=== PATIENT | male | born 1985 | race Caucasian/White ===

== ENCOUNTER → 2019-07-19 08:27 | Outpatient (BNVA) | payer SELFPAY | PROVIDERS: PCP Nurse Practitioner Family; Referring Provider Nurse Practitioner Family; Visit Provider Specialist | DX: G40.909 Epilepsy, unspecified, not intractable, without status epilepticus (principal); F17.210 Nicotine dependence, cigarettes, uncomplicated | CPT/HCPCS: 95816 ==

== ENCOUNTER 2019-08-18 03:58 | Emergency (ER) | payer SELFPAY ==
[2019-08-18 03:59] VITALS: BP 119/83; PULSE 86; RESP 20; TEMP 36.6; O2SAT 97; BMI 25.8
--- NOTE | 2019-08-18 04:01 | XR_ITS ---
WS: [id number] CHEST XRAY TECHNIQUE: Portable chest. CLINICAL INFORMATION: cp COMPARISON: None. FINDINGS: Heart: Normal cardiac silhouette. Lungs: Lungs are clear. No consolidation or pleural effusion. Bones: Normal visualized bony structures. XR/XR chest 1V portable [id number] IMPRESSION: Normal chest
--- NOTE | 2019-08-18 04:02 | ED_ITS ---
HPI - Chest Pain General: Chief Complaint: Chest Pain Stated Complaint: chest pain Time Seen by Provider: 08/18/19 04:01 Source: patient and EMS Mode of arrival: EMS Limitations: no limitations History of Present Illness: HPI narrative: 33-year-old male states he has had chest pain over the last 2 days is worsened tonight. He states pain is very sharp in nature denies any worsening or improving factors. He states pain is currently a 9 out of 10. He denies any vomiting or diarrhea. Pain is over right lower chest and right upper abdomen. Denies fevers. complaint: chest pain Onset (ago): day(s) Timing of current episode: constant Pain location: right chest Pain radiation: none Severity: severe Quality: sharp Relieving factors: nothing Exacerbating factors: nothing Associated symptoms: Deny abdominal pain, dyspnea, fever(s), nausea or vomiting Review of Systems Const: Denies: fever(s), chills, body aches or change in appetite Eyes: Denies: blurry vision or eye discomfort ENMT: Denies: throat pain or dental pain Card: Reports: chest pain Resp: Denies: dyspnea GI: Denies: abdominal pain, nausea, vomiting or diarrhea : Denies: dysuria Musc: Denies: neck pain or back pain Skin/Breast: Denies: rash Neuro: Denies: headache(s) Psych: Denies: depression Mark/Lymph: Denies: easy bruising All/Imm: Denies: urticaria PFS ED PFSH: Medical History Alcohol dependence, uncomplicated Cannabis dependence, uncomplicated Major depressive disorder, recurrent severe without psychotic features Nicotine dependence, cigarettes, uncomplicated Other stimulant dependence, uncomplicated Post-traumatic stress disorder, chronic Social History Smoking and tobacco status: current every day smoker cigarettes Physical Exam Const: COMMON NORMALS: no acute distress, patient oriented x3 and healthy appearing HENMT: COMMON NORMALS: normocephalic and atraumatic HEAD & SCALP: normocephalic and atraumatic Eye: COMMON NORMALS: Equal, round and reactive pupils present and EOMs intact bilaterally PUPIL: Yes Equal, round and reactive pupils present Neck/C-Spine: COMMON NORMALS: full ROM and supple Chest: COMMONS NORMALS: normal inspection of the chest OTHER: point tender over right lower chest Resp: COMMON NORMALS: normal respiratory effort, No retractions, No use of accessory muscles and clear to auscultation bilaterally AUSCULTATION: clear to auscultation bilaterally Cardio: COMMON NORMALS: regular rate, regular rhythm and No murmurs present (Cardio) RATE: regular rate RHYTHM: regular rhythm GI: COMMON NORMALS: Normal to inspection, nondistended, normoactive bowel sounds present, Soft to palpation, non-tender and no masses PALPATION: Yes Soft to palpation Extremity: COMMON NORMALS: normal to inspection and full ROM Neuro: COMMON NORMALS: patient oriented x3, moves all extremities and no focal motor deficits Psych: COMMON NORMALS: mental status grossly normal, Normal thought process present and cooperative THOUGHT PROCESS: Normal thought process present Skin: COMMON NORMALS: no rashes or lesions noted and no wounds GENERAL SKIN EXAM: no rashes or lesions noted Course Vital Signs: Vital signs: Vital Signs Temperature 97.8 F 08/18/19 03:59 Pulse Rate 86 08/18/19 03:59 Respiratory Rate 20 H 08/18/19 03:59 Blood Pressure 119/83 08/18/19 03:59 Pulse Oximetry 97 08/18/19 03:59 MDM - Chest Pain MDM Narrative: Medical decision making narrative: Patient presents here with chest pain is atypical in nature. Patient also slight abdominal pain with constipation. Patient's lab work here is normal signs and elevated white count. Patient has no signs of acute surgical abdomen. Patient has no signs of pulmonary embolism or cardiac cause. Patient is stable for discharge and is to follow-up with his primary care doctor in 3 to 5 days return if worsening. Lab Data: Labs: Lab Results 08/18/19 08/18/19 08/18/19 Range/Units 03:45 03:45 03:45 WBC 18.3 H (4.0-10.0) 10^3/ uL RBC 4.81 (4.1-5.3) 10^6/u L Hgb 14.7 (11.7-16.6) g/dL Hct 44.6 (42.0-52.0) % MCV 92.7 (80-94) fL MCH 30.6 (28.0-34.0) pg MCHC 33.0 (30.0-36.0) g/dL RDW 12.9 (12.1-15.1) % Plt Count 295 (130-400) 10^3/c mm MPV 9.8 (7.4-10.4) fL Neut % (Auto) 78.2 % Lymph % (Auto) 13.1 % [place] % (Auto) 7.1 % Eos % (Auto) 1.0 % Baso % (Auto) 0.3 % Neut # (Auto) 14.3 H (1.8-7.7) 10^3/u L Lymph # (Auto) 2.4 (0.8-4.8) 10^3/u L [place] # (Auto) 1.3 H (0.2-0.9) 10^3/u L Eos # (Auto) 0.2 (0.0-0.8) 10^3/u L Baso # (Auto) 0.1 (0.0-0.1) 10^3/u L Nucleated RBC % (a uto) 0 % Nucleated RBCs # 0.0 /100WBC Sodium 139 (136-145) mmol/L Potassium 4.7 (3.5-5.1) mmol/L Chloride 101 (98-107) mmol/L Carbon Dioxide 22 (22-29) mmol/L Anion Gap 20.7 H (5-19) BUN 22 H (6-20) mg/dL Creatinine 1.1 (0.7-1.2) mg/dL GFR Calculation 77.6 L (90-130) mL/min Glucose 95 (65-115) mg/dL Calculated Osmolal ity 284 L (285-295) mOsm/k g Calcium 9.4 (8.5-10.5) mg/dL Total Bilirubin 0.3 (0.15-1.2) mg/dL AST 38 (0-40) U/L ALT 65 H (0-41) U/L Alkaline Phosphata se 122 (40-130) IU/L Troponin T Baselin e 7 (0-15) ng/mL Total Protein 7.1 (6.6-8.7) g/dL Albumin 5.0 (3.5-5.2) g/dL Globulin 2.1 (1.3-4.6) g/dL Lipase 24 (13-60) U/L Imaging Data^: CT Abd/Pel: Attestation: I personally reviewed and interpreted this imaging study as chris guadarrama: Radiologist's impression: [address] [address] [address] Scan Report Signed Patient: Andre Pressley Unit #: [id number] : 1985 Age/Sex: 33 / M ADM Date: 08/18/19 Loc: ER Room/Bed: Attending Dr: Ordering Provider/Ordering MD: Quyen Saba MD Date of Service: 08/18/19 Procedure(s): CT abdomen pelvis w con* [id number] Accession Number(s): [id number] Report Number: [id number] PROCEDURE INFORMATION: Exam: CT Abdomen And Pelvis With Contrast Exam date and time: 08/18/2019 4:22 AM Age: 33 years old Clinical indication: Abdominal pain; Generalized; Additional info: Abd pain TECHNIQUE: Imaging protocol: Computed tomography of the abdomen and pelvis with intravenous contrast. Radiation optimization: All CT scans at this facility use at least one of these dose optimization techniques: automated exposure control; mA and/or kV adjustment per patient size (includes targeted exams where dose is matched to clinical indication); or iterative reconstruction. Contrast material: OMNI 300; Contrast volume: 95 ml; Contrast route: 20G; COMPARISON: No relevant prior studies available. RADIATION DOSE METRICS: Total DLP: 618.93 mGy-cm FINDINGS: Liver: Unremarkable liver. Gallbladder and bile ducts: Focal narrowing of the midportion of the gallbladder. No calcified gallstones or biliary ductal dilatation. Pancreas: Unremarkable. No ductal dilation. Spleen: No splenomegaly. Adrenals: No adrenal mass. Kidneys and ureters: Minimal right hydronephrosis. No left hydronephrosis. No apparent ureteral stone. Stomach and bowel: Moderate amount of feces in the rectum extending into the rectosigmoid region. Elongation of the sigmoid colon into the upper abdomen. No obstruction. Nondistended stomach. Appendix: Normal appendix. Intraperitoneal space: No free air. Vasculature: Approximately moderate to marked stenosis of the proximal celiac artery with mild poststenotic dilatation distal to this area; mild inferior looping of the proximal celiac artery with soft tissue extending transversely anterior to this area. No calcific plaque in the aorta or iliac arteries. No aortic aneurysm. Lymph nodes: No enlarged nodes. Bladder: Unremarkable as visualized. Reproductive: Unremarkable as visualized. Bones/joints: Old compression fractures. Degeneration of the L5-S1 disc. Soft tissues: Slight stranding and haziness in the subcutaneous fat in the lateral pelvic regions. CT/CT abdomen pelvis w con* [id number] IMPRESSION: 1. Suspicion of a rectal impaction. Elongation of the sigmoid colon into the upper abdomen indicating the possibility of colonic dysfunction. 2. 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 3. Focal narrowing of the midportion of the gallbladder raising the possibility of 1 of the hyperplastic cholecystoses. 4. Minimal right hydronephrosis, cause and age unclear. Other findings detailed above. EKG Data^: EKG 1: Attestation: I personally reviewed and interpreted this EKG as follows: EKG interpretation date: 08/18/19 EKG interpretation time: 04:11 Interpretation: nsr hr [address] or t wave abnormalities qrs 105 qtc 363 Discharge Plan Discharge Patient Disposition: Home, Self-Care Clinical Impression: Atypical chest pain, Constipation Abdominal pain Qualifiers: Abdominal location: generalized Qualified Code(s): R10.84 - Generalized abdominal pain Condition: Stable Prescriptions: New Miralax 17 gram/dose powder 17 gm PO DAILY PRN (Reason: constipation) Qty: 119 RF: 0 No Action sertraline [Zoloft] 100 mg tablet 100 mg PO DAILY Qty: 30 RF: 1 quetiapine [Seroquel] 100 mg tablet 100 mg PO .HS Qty: 30 RF: 1 Discharge Orders: Discharge Order (Routine); Ordered 08/18/19 Ordered By: Quyen Saba Discharge Diet: Advance as tolerated Discharge Activity: Resume usual activity Patient Instructions: Chest Pain (ED), Abdominal Pain (ED) Coding Level of Care Code ED District Leader for Chg Fwd Exam Comprehensive
[2019-08-18 04:12] LABS: Basophils # 0.1 10^3/uL (0.0-0.1); Basophils % 0.3 %; Eosinophils # 0.2 10^3/uL (0.0-0.8); Hematocrit 44.6 % (42.0-52.0); Hemoglobin 14.7 g/dL (11.7-16.6); Lymphocytes # 2.4 10^3/uL (0.8-4.8); Lymphocytes % 13.1 %; Mean Corpuscular Hemoglobin 30.6 pg (28.0-34.0); Mean Corpuscular Volume 92.7 fL (80-94); Mean Platelet Volume 9.8 fL (7.4-10.4); Monocytes # 1.3 10^3/uL (0.2-0.9); Monocytes % 7.1 %; Neutrophils # 14.3 10^3/uL (1.8-7.7); Neutrophils % 78.2 %; Nucleated Red Blood Cells % 0 %; Platelet Count 295 10^3/cmm (130-400); Red Blood Count 4.81 10^6/uL (4.1-5.3); Red Cell Distribution Width 12.9 % (12.1-15.1); White Blood Count 18.3 10^3/uL (4.0-10.0)
--- NOTE | 2019-08-18 04:21 | CTR_ITS ---
PROCEDURE INFORMATION: Exam: CT Abdomen And Pelvis With Contrast Exam date and time: 08/18/2019 4:22 AM Age: 33 years old Clinical indication: Abdominal pain; Generalized; Additional info: Abd pain TECHNIQUE: Imaging protocol: Computed tomography of the abdomen and pelvis with intravenous contrast. Radiation optimization: All CT scans at this facility use at least one of these dose optimization techniques: automated exposure control; mA and/or kV adjustment per patient size (includes targeted exams where dose is matched to clinical indication); or iterative reconstruction. Contrast material: OMNI 300; Contrast volume: 95 ml; Contrast route: 20G; COMPARISON: No relevant prior studies available. RADIATION DOSE METRICS: Total DLP: 618.93 mGy-cm FINDINGS: Liver: Unremarkable liver. Gallbladder and bile ducts: Focal narrowing of the midportion of the gallbladder. No calcified gallstones or biliary ductal dilatation. Pancreas: Unremarkable. No ductal dilation. Spleen: No splenomegaly. Adrenals: No adrenal mass. Kidneys and ureters: Minimal right hydronephrosis. No left hydronephrosis. No apparent ureteral stone. Stomach and bowel: Moderate amount of feces in the rectum extending into the rectosigmoid region. Elongation of the sigmoid colon into the upper abdomen. No obstruction. Nondistended stomach. Appendix: Normal appendix. Intraperitoneal space: No free air. Vasculature: Approximately moderate to marked stenosis of the proximal celiac artery with mild poststenotic dilatation distal to this area; mild inferior looping of the proximal celiac artery with soft tissue extending transversely anterior to this area. No calcific plaque in the aorta or iliac arteries. No aortic aneurysm. Lymph nodes: No enlarged nodes. Bladder: Unremarkable as visualized. Reproductive: Unremarkable as visualized. Bones/joints: Old compression fractures. Degeneration of the L5-S1 disc. Soft tissues: Slight stranding and haziness in the subcutaneous fat in the lateral pelvic regions. CT/CT abdomen pelvis w con* [id number] IMPRESSION: 1. Suspicion of a rectal impaction. Elongation of the sigmoid colon into the upper abdomen indicating the possibility of colonic dysfunction. 2. 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 3. Focal narrowing of the midportion of the gallbladder raising the possibility of 1 of the hyperplastic cholecystoses. 4. Minimal right hydronephrosis, cause and age unclear. Other findings detailed above. Radiation Dose CTDIVOL = (mGy): DLP = 618.93 (mGy-cm)
[2019-08-18 04:31] LABS: Troponin(5th) Baseline 7 ng/mL (0-15)
[2019-08-18] MEDS: ondansetron 2 mg/ML SDV 2 mL 4 MG IVP (04:32)
[2019-08-18] MEDS: ketorolac 30 mg/mL INJ IVP (04:32)
[2019-08-18 04:45] LABS: Alanine Aminotransferase 65 U/L (0-41); Alkaline Phosphatase 122 IU/L (40-130); Anion Gap 20.7 (5-19); Aspartate Amino Transferase 38 U/L (0-40); Blood Urea Nitrogen 22 mg/dL (6-20); Calcium 9.4 mg/dL (8.5-10.5); Carbon Dioxide 22 mmol/L (22-29); Chloride 101 mmol/L (98-107); Globulin 2.1 g/dL (1.3-4.6); Glomerular Filtration Rate 77.6 mL/min (90-130); Glucose 95 mg/dL (65-115); Lipase 24 U/L (13-60); Osmolality Calculated 284 mOsm/kg (285-295); Potassium 4.7 mmol/L (3.5-5.1); Sodium 139 mmol/L (136-145); Total Bilirubin 0.3 mg/dL (0.15-1.2); Total Protein 7.1 g/dL (6.6-8.7)
[2019-08-18] MEDS: iohexol 300 mg/mL 100 mL Btl IV (05:06)
[2019-08-18 05:41] VITALS: BP 106/69; PULSE 96; RESP 20; O2SAT 96
== END 2019-08-18 05:43 | disposition home or self-care (01) ==
PROVIDERS: Emergency Provider Emergency Medicine
DX: R07.89 Other chest pain (principal); K59.00 Constipation, unspecified; F17.210 Nicotine dependence, cigarettes, uncomplicated
CPT/HCPCS: 12345; 71045; 74177; 80053; 83690; 84484; 85025; 96374; 96375; 99282; 99284; J1885; J2405; Q9967

== ENCOUNTER 2019-08-26 20:15 | Emergency (ER) | payer SELFPAY ==
[2019-08-26 20:17] VITALS: BP 121/78; PULSE 95; RESP 16; TEMP 36.7; O2SAT 97; BMI 26.6
--- NOTE | 2019-08-26 20:19 | XRR_ITS ---
PROCEDURE INFORMATION: Exam: XR Chest, 1 View Exam date and time: 08/26/2019 8:41 PM Age: 33 years old Clinical indication: Injury or trauma; Fall; Initial encounter; Abrasion; Injury details: Right rib pain TECHNIQUE: Imaging protocol: XR of the chest Views: 1 view. COMPARISON: CR XR chest 1V portable [id number] 08/18/2019 4:48 AM FINDINGS: Lungs: Unremarkable. No consolidation. Pleural space: Unremarkable. No pleural effusion. No pneumothorax. Heart/Mediastinum: Unremarkable. No cardiomegaly. Bones/joints: Unremarkable. XR/XR chest 1V portable [id number] IMPRESSION: No acute findings.
--- NOTE | 2019-08-26 20:22 | ED_ITS ---
HPI - General Adult General: Chief complaint: Seizure Stated complaint: RIB PAIN Time Seen by Provider: 08/26/19 20:19 History of Present Illness: HPI narrative: Andre is a nice 33-year-old male who comes in complaining of right lower anterior rib pain and right upper quadrant pain after falling. The patient had a seizure which caused him to fall to the ground re-aggravating injuries that he had previously suffered. Patient states he was recently in [facility] for these injuries. He states he had 3 broken ribs. His seizures are new and he is not taking any seizure medication at this time. He is scheduled to follow-up with Dr. Mcneal to work this up further. Patient is denying any injuries other than increased pain to his right lower chest and upper abdominal area. Associated symptoms: Reports chest pain; Deny confusion, diaphoresis, dyspnea, headache(s), malaise, nausea, rash, palpitations, syncope or vomiting Review of Systems Const: Denies: fever(s), chills, body aches, fatigue, malaise or diaphoresis Eyes: Denies: change in vision, blurry vision, blind spots or photophobia ENMT: Denies: throat pain, odynophagia, hoarseness, swelling of lips/tongue, ear or mastoid pain, ear discharge, change in hearing or nasal discharge Card: Reports: chest pain; Denies: palpitations, irregular heart rhythm, edema, lightheadedness, syncope, pre-syncope, dyspnea on exertion or orthopnea Resp: Denies: dyspnea, productive cough, non-productive cough, wheezing, hemoptysis or chest congestion GI: Reports: abdominal pain; Denies: nausea, vomiting, hematemesis, coffee ground emesis, heartburn, diarrhea, constipation, GI cramping, hematochezia or melena : Denies: flank pain, dysuria, urinary frequency, urinary urgency or hematuria Musc: Denies: neck pain, back pain, extremity pain, extremity swelling, joint pain, joint swelling, joint redness, joint warmth or joint stiffness Skin/Breast: Denies: rash, pruritus, erythema, skin tenderness or jaundice Neuro: Denies: headache(s), numbness in extremities, weakness in extremities, sensory changes, lack of coordination, difficulty walking, dizziness, vertigo, confusion or Slurred speech present Mark/Lymph: Denies: easy bruising, easy bleeding, petechiae, purpura or enlarged lymph nodes All/Imm: Denies: urticaria, throat swelling, tongue swelling, facial swelling or acute wheezing PFSH ED PFSH: Medical History Alcohol dependence, uncomplicated Cannabis dependence, uncomplicated Major depressive disorder, recurrent severe without psychotic features Nicotine dependence, cigarettes, uncomplicated Other stimulant dependence, uncomplicated Post-traumatic stress disorder, chronic Social History Smoking and tobacco status: current every day smoker cigarettes Physical Exam Const: COMMON NORMALS: no acute distress, patient oriented x3, no limitations, healthy appearing and well nourished GENERAL APPEARANCE: cooperative, well kempt and well developed HENMT: COMMON NORMALS: normocephalic, atraumatic, hearing grossly normal bilaterally, external ears normal, EAC's normal, Normal external nose present and moist oral mucous membranes HEAD & SCALP: normocephalic and atraumatic NOSE: Normal external nose present and Normal nares present EXTERNAL EAR: Yes external ears normal EXTERNAL AUDITORY CANAL: EAC's normal MOUTH: Normal oral and palatal mucosa present, lip normal and tongue normal Eye: COMMON NORMALS: Equal, round and reactive pupils present, EOMs intact bilaterally, conjunctivae normal and no scleral icterus GENERAL EYE: appearance normal, both eyes and all related structures ALIGNMENT: Yes alignment normal PERIORBITAL: periorbital findings normal EYELID: eyelids normal CONJUNCTIVA: Yes conjunctivae normal SCLERA: sclerae normal PU PIL: Yes Equal, round and reactive pupils present Neck/C-Spine: COMMON NORMALS: full ROM, no lymphadenopathy, supple, no meningeal signs and no JVD GENERAL: Yes normal visual inspection and Yes trachea midline Chest: CHEST: No crepitus and Yes localized rib tenderness with anteroposterior compression (Anterior right lower ribs) Resp: COMMON NORMALS: normal respiratory effort, No retractions, No use of accessory muscles and clear to auscultation bilaterally EFFORT & INSPECTION: Yes able to speak in complete sentences and Yes symmetric chest movement AUSCULTATION: clear to auscultation bilaterally, no crackles, no rales, no rhonchi and no wheezes Cardio: COMMON NORMALS: no JVD, regular rate, regular rhythm, S1 normal heart sound present, S2 normal heart sound present, No gallops present (Cardio), No clicks present (Cardio), No murmurs present (Cardio) and No rub (Cardio) RATE: regular rate RHYTHM: regular rhythm HEART SOUNDS: S1 normal heart sound present and S2 normal heart sound present GI: COMMON NORMALS: Soft to palpation and No hepatosplenomegaly present PALPATION: Yes Soft to palpation, Yes Tenderness to palpation present (GI) (Right upper quadrant), No Guarding due to palpation present (GI), No Rigid due to palpation, Yes No hepatosplenomegaly present, No Hernia present, No Palpable mass present and No Pulsatile mass present : COMMON NORMALS: Yes no CVA tenderness BLADDER/KIDNEY EXAM: Yes no CVA tenderness Back/Pelvis: COMMON NORMALS: no CVA tenderness, thoracic and lumbar spine normal to inspection, no thoracic nor lumbar tenderness and thoraco-lumbar ROM normal Extremity: COMMON NORMALS: normal to inspection, full ROM, capillary refill normal, no joint enlargement, no clubbing, cyanosis or edema and no calf tenderness Neuro: COMMON NORMALS: patient oriented x3, CN's II-XII intact bilaterally, moves all extremities, no focal motor deficits and no sensory deficits noted MENINGEAL SIGNS: Yes no meningeal signs SPEECH: speech normal Psych: COMMON NORMALS: mental status grossly normal, Normal thought process present, cooperative, normal affect, speech normal and activity/motor behavior normal APPEARANCE: Yes well kempt SPEECH: Yes normal speech THOUGHT PROCESS: Normal thought process present Skin: COMMON NORMALS: no rashes or lesions noted, turgor normal, no jaundice, no petechiae and no mottling GENERAL SKIN EXAM: no rashes or lesions noted and turgor normal Course Vital Signs: Vital signs: Vital Signs Temperature 98.0 F 08/26/19 20:17 Pulse Rate 87 08/26/19 22:46 Respiratory Rate 18 08/26/19 22:46 Blood Pressure 110/78 08/26/19 22:46 Pulse Oximetry 98 08/26/19 22:46 MDM - General Adult MDM Narrative: Medical decision making narrative: Peter is a nice 33-year-old male who comes in with a breakthrough seizure and has caused a reinjury to his right ribs. Clinically does have a rib fracture but CT scan shows no evidence of any internal injuries or pneumothorax. Patient is scheduled to go see Dr. Mnceal but has not done so yet. I had a CT of the head performed tonight because of this new diagnosis but there is no acute abnormality. Per my experience of working with Dr. Mcneal I started him on Keppra 500 mg p.o. twice daily. We have done this together multiple times in the past. Patient showed no other sign of problem. I did review seizure precautions with him at length and he agrees to follow-up with Dr. Mcneal or return here if necessary. Lab Data: Attestation: I reviewed the patient's lab results. Labs: Lab Results 08/26/19 08/26/19 Range/Units 20:25 20:25 WBC 10.0 (4.0-10.0) 10^3/ uL RBC 4.52 (4.1-5.3) 10^6/u L Hgb 13.9 (11.7-16.6) g/dL Hct 42.8 (42.0-52.0) % MCV 94.7 H (80-94) fL MCH 30.8 (28.0-34.0) pg MCHC 32.5 (30.0-36.0) g/dL RDW 12.7 (12.1-15.1) % Plt Count 273 (130-400) 10^3/c mm MPV 9.2 (7.4-10.4) fL Neut % (Auto) 54.3 % Lymph % (Auto) 34.1 % [place] % (Auto) 9.2 % Eos % (Auto) 1.8 % Baso % (Auto) 0.3 % Neut # (Auto) 5.4 (1.8-7.7) 10^3/u L Lymph # (Auto) 3.4 (0.8-4.8) 10^3/u L [place] # (Auto) 0.9 (0.2-0.9) 10^3/u L Eos # (Auto) 0.2 (0.0-0.8) 10^3/u L Baso # (Auto) 0.0 (0.0-0.1) 10^3/u L Nucleated RBC % (a uto) 0 % Nucleated RBCs # 0.0 /100WBC Sodium 139 (136-145) mmol/L Potassium 4.2 (3.5-5.1) mmol/L Chloride 101 (98-107) mmol/L Carbon Dioxide 26 (22-29) mmol/L Anion Gap 16.2 (5-19) BUN 20 (6-20) mg/dL Creatinine 1.1 (0.7-1.2) mg/dL GFR Calculation 77.6 L (90-130) mL/min Glucose 96 (65-115) mg/dL Calculated Osmolal ity 284 L (285-295) mOsm/k g Calcium 10.4 (8.5-10.5) mg/dL Magnesium 2.0 (1.7-2.3) mg/dL Total Bilirubin 0.2 (0.15-1.2) mg/dL AST 83 H (0-40) U/L ALT 143 H (0-41) U/L Alkaline Phosphata se 96 (40-130) IU/L Total Protein 7.4 (6.6-8.7) g/dL Albumin 4.5 (3.5-5.2) g/dL Globulin 2.9 (1.3-4.6) g/dL Imaging Data^: CT Head: Radiologist's impression: [place] [address] CT Scan Report Signed Patient: Andre Pressley Unit #: [id number] : 1985 Age/Sex: 33 / M ADM Date: Loc: ER Room/Bed: Attending Dr: Ordering Provider/Ordering MD: Audra Segal DO Date of Service: 08/26/19 Procedure(s): CT head wo con* [id number] Accession Number(s): [id number] Report Number: [id number] PROCEDURE INFORMATION: Exam: CT Head Without Contrast Exam date and time: 08/26/2019 9:04 PM Age: 33 years old Clinical indication: Syncope and collapse; Patient HX: ? New onset seizures TECHNIQUE: Imaging protocol: Computed tomography of the head without contrast. Radiation optimization: All CT scans at this facility use at least one of these dose optimization techniques: automated exposure control; mA and/or kV adjustment per patient size (includes targeted exams where dose is matched to clinical indication); or iterative reconstruction. COMPARISON: CT head wo con* [id number] 07/11/2017 10:52 AM RADIATION DOSE METRICS: Total DLP: 771.08 mGy-cm FINDINGS: Brain: Normal. No hemorrhage. Unremarkable white matter. No mass effect. Ventricles: Normal. No ventriculomegaly. Bones/joints: Unremarkable. No acute fracture. Sinuses: Visualized sinuses are unremarkable. No fluid levels. Mastoid air cells: Visualized mastoid air cells are well aerated. Soft tissues: Unremarkable. CT/CT head wo con* [id number] IMPRESSION: No acute intracranial abnormality. Radiation Dose CTDIVOL = (mGy): DLP = 771.08 (mGy-cm) Dictated By: Aristeo Wood Signed By: Aristeo Wood Signed Date/Time: 08/26/192143 DD/ 42 CT Chest/Abdomen/Pelvis: Radiologist's impression: [place] [address] CT Scan Report Signed Patient: Andre Pressley Unit #: [id number] : 1985 Age/Sex: 33 / M ADM Date: 08/26/19 Loc: ER Room/Bed: Attending Dr: Ordering Provider/Ordering MD: Audra Segal DO Date of Service: 08/26/19 Procedure(s): CT chest abd pel w con* Accession Number(s): [id number] Report Number: [id number] PROCEDURE INFORMATION: Exam: CT Chest With Contrast Exam date and time: 08/26/2019 9:04 PM Age: 33 years old Clinical indication: Abdominal pain; Localized; Right upper quadrant (ruq); Chest wall pain; Patient HX: C/O R sided chest/abd pain after possible seizure; Additional info: Trauma TECHNIQUE: Imaging protocol: Computed tomography of the chest with intravenous contrast. Radiation optimization: All CT scans at this facility use at least one of these dose optimization techniques: automated exposure control; mA and/or kV adjustment per patient size (includes targeted exams where dose is matched to clinical indication); or iterative reconstruction. Contrast material: OMNI 300; Contrast volume: 95 ml; Contrast route: 20G; COMPARISON: CT abdomen pelvis w con* [id number] 08/18/2019 4:55 AM RADIATION DOSE METRICS: Total DLP: 1336.75 mGy-cm FINDINGS: Lungs: Minimal dependent atelectasis lung bases. Pleural space: Unremarkable. No pneumothorax. No pleural effusion. Heart: Unremarkable. No cardiomegaly. No pericardial effusion. Aorta: Unremarkable. No aortic aneurysm. Lymph nodes: Unremarkable. No enlarged lymph nodes. Bones/joints: Unremarkable. No acute fracture. Soft tissues: Unremarkable. IMPRESSION: No visible active or acute cardiopulmonary/cardiothoracic pathologic process. PROCEDURE INFORMATION: Exam: CT Abdomen And Pelvis With Contrast Exam date and time: 08/26/2019 9:04 PM Age: 33 years old Clinical indication: Abdominal pain; Localized; Right upper quadrant (ruq); Chest wall pain; Patient HX: C/O R sided chest/abd pain after possible seizure; Additional info: Trauma TECHNIQUE: Imaging protocol: Computed tomography of the abdomen and pelvis with intravenous contrast. Radiation optimization: All CT scans at this facility use at least one of these dose optimization techniques: automated exposure control; mA and/or kV adjustment per patient size (includes targeted exams where dose is matched to clinical indication); or iterative reconstruction. Contrast material: OMNI 300; Contrast volume: 95 ml; Contrast route: 20G; COMPARISON: CT abdomen pelvis w con* [id number] 08/18/2019 4:55 AM RADIATION DOSE METRICS: Total DLP: 1336.75 mGy-cm FINDINGS: Liver: Unremarkable. No mass. Gallbladder and bile ducts: Normal. No calcified stones. No ductal dilation. Pancreas: Normal. No ductal dilation. Spleen: Normal. No splenomegaly. Adrenals: Normal. No mass. Kidneys and ureters: Normal. No hydronephrosis. Stomach and bowel: Unremarkable. No obstruction. No mucosal thickening. Appendix: No evidence of appendicitis. Intraperitoneal space: Unremarkable. No free air. No significant fluid collection. Vasculature: Unremarkable. No abdominal aortic aneurysm. Lymph nodes: Unremarkable. No enlarged lymph nodes. Bladder: Unremarkable as visualized. Reproductive: Unremarkable as visualized. Bones/joints: Unremarkable. No acute fracture. Soft tissues: Unremarkable. CT/CT chest abd pel w con* IMPRESSION: No acute findings. Radiation Dose CTDIVOL = (mGy): DLP = 1336.75 1336.75 (mGy-cm) Dictated By: Aristeo Wood Signed By: Aristeo Wood Signed Date/Time: 08/26/192150 DD/ 49 Discharge Plan Discharge Patient Disposition: Home, Self-Care Clinical Impression: Rib injury, Seizure disorder, Liver enzyme elevation Condition: Stable Prescriptions: New Keppra 500 mg tablet 500 mg PO BID 14 Days Qty: 28 RF: 0 [place] 5-325 mg tablet 1 tab PO Q6H PRN (Reason: pain) 5 Days Qty: 10 RF: 0 No Action sertraline [Zoloft] 100 mg tablet 100 mg PO DAILY Qty: 30 RF: 1 quetiapine [Seroquel] 100 mg tablet 100 mg PO .HS Qty: 30 RF: 1 Miralax 17 gram/dose powder 17 gm PO DAILY PRN (Reason: constipation) Qty: 119 RF: 0 Discharge Orders: Discharge Order (Routine); Ordered 08/26/19 Ordered By: Audra Segal Referrals: Mariposa Mcneal MD [Physician] - (Follow-up as scheduled with Dr. Mcneal.) Alf Jon MD [Physician] - 7-10 days Discharge Diet: Advance as tolerated Discharge Activity: Increase activity as tolerated Patient Instructions: Recurrent Seizures Adult (ED), Fractures - Rib Activity Restrictions/Additional Instructions: Please return to the ER immediately for any of the signs or symptoms listed on your discharge instruction sheets, worsening/changing of your symptoms, you are not getting better as quickly as expected, or for ANY other cause or concerns. No driving, no working at heights, no tub baths, no swimming alone or anything else that would put you at risk should you have another seizure. Be certain to follow-up with your doctor or Dr. Jon for a reevaluation of your elevated liver enzymes. 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
[2019-08-26 20:32] LABS: Basophils % 0.3 %; Eosinophils # 0.2 10^3/uL (0.0-0.8); Eosinophils % 1.8 %; Hematocrit 42.8 % (42.0-52.0); Hemoglobin 13.9 g/dL (11.7-16.6); Lymphocytes # 3.4 10^3/uL (0.8-4.8); Lymphocytes % 34.1 %; Mean Corpuscular HGB Conc 32.5 g/dL (30.0-36.0); Mean Corpuscular Hemoglobin 30.8 pg (28.0-34.0); Mean Corpuscular Volume 94.7 fL (80-94); Mean Platelet Volume 9.2 fL (7.4-10.4); Monocytes # 0.9 10^3/uL (0.2-0.9); Monocytes % 9.2 %; Neutrophils # 5.4 10^3/uL (1.8-7.7); Neutrophils % 54.3 %; Nucleated Red Blood Cells % 0 %; Platelet Count 273 10^3/cmm (130-400); Red Blood Count 4.52 10^6/uL (4.1-5.3); Red Cell Distribution Width 12.7 % (12.1-15.1)
[2019-08-26] MEDS: ondansetron 2 mg/ML SDV 2 mL 4 MG IVP (20:41)
[2019-08-26] MEDS: lactated ringers 1,000 ML 150 ML IV (20:41)
[2019-08-26 20:42] VITALS: RESP 16
[2019-08-26] MEDS: morphine 4 mg/mL SDV 1 mL IVP (20:42)
[2019-08-26 20:44] VITALS: BP 105/59; PULSE 93; RESP 20; O2SAT 96
[2019-08-26 20:52] LABS: Alanine Aminotransferase 143 U/L (0-41); Albumin Level 4.5 g/dL (3.5-5.2); Alkaline Phosphatase 96 IU/L (40-130); Anion Gap 16.2 (5-19); Aspartate Amino Transferase 83 U/L (0-40); Blood Urea Nitrogen 20 mg/dL (6-20); Calcium 10.4 mg/dL (8.5-10.5); Carbon Dioxide 26 mmol/L (22-29); Chloride 101 mmol/L (98-107); Globulin 2.9 g/dL (1.3-4.6); Glomerular Filtration Rate 77.6 mL/min (90-130); Glucose 96 mg/dL (65-115); Osmolality Calculated 284 mOsm/kg (285-295); Potassium 4.2 mmol/L (3.5-5.1); Sodium 139 mmol/L (136-145); Total Bilirubin 0.2 mg/dL (0.15-1.2); Total Protein 7.4 g/dL (6.6-8.7)
--- NOTE | 2019-08-26 21:01 | CTR_ITS ---
PROCEDURE INFORMATION: Exam: CT Head Without Contrast Exam date and time: 08/26/2019 9:04 PM Age: 33 years old Clinical indication: Syncope and collapse; Patient HX: ? New onset seizures TECHNIQUE: Imaging protocol: Computed tomography of the head without contrast. Radiation optimization: All CT scans at this facility use at least one of these dose optimization techniques: automated exposure control; mA and/or kV adjustment per patient size (includes targeted exams where dose is matched to clinical indication); or iterative reconstruction. COMPARISON: CT head wo con* [id number] 07/11/2017 10:52 AM RADIATION DOSE METRICS: Total DLP: 771.08 mGy-cm FINDINGS: Brain: Normal. No hemorrhage. Unremarkable white matter. No mass effect. Ventricles: Normal. No ventriculomegaly. Bones/joints: Unremarkable. No acute fracture. Sinuses: Visualized sinuses are unremarkable. No fluid levels. Mastoid air cells: Visualized mastoid air cells are well aerated. Soft tissues: Unremarkable. CT/CT head wo con* [id number] IMPRESSION: No acute intracranial abnormality. Radiation Dose CTDIVOL = (mGy): DLP = 771.08 (mGy-cm)
--- NOTE | 2019-08-26 21:01 | CTR_ITS ---
PROCEDURE INFORMATION: Exam: CT Chest With Contrast Exam date and time: 08/26/2019 9:04 PM Age: 33 years old Clinical indication: Abdominal pain; Localized; Right upper quadrant (ruq); Chest wall pain; Patient HX: C/O R sided chest/abd pain after possible seizure; Additional info: Trauma TECHNIQUE: Imaging protocol: Computed tomography of the chest with intravenous contrast. Radiation optimization: All CT scans at this facility use at least one of these dose optimization techniques: automated exposure control; mA and/or kV adjustment per patient size (includes targeted exams where dose is matched to clinical indication); or iterative reconstruction. Contrast material: OMNI 300; Contrast volume: 95 ml; Contrast route: 20G; COMPARISON: CT abdomen pelvis w con* [id number] 08/18/2019 4:55 AM RADIATION DOSE METRICS: Total DLP: 1336.75 mGy-cm FINDINGS: Lungs: Minimal dependent atelectasis lung bases. Pleural space: Unremarkable. No pneumothorax. No pleural effusion. Heart: Unremarkable. No cardiomegaly. No pericardial effusion. Aorta: Unremarkable. No aortic aneurysm. Lymph nodes: Unremarkable. No enlarged lymph nodes. Bones/joints: Unremarkable. No acute fracture. Soft tissues: Unremarkable. IMPRESSION: No visible active or acute cardiopulmonary/cardiothoracic pathologic process. PROCEDURE INFORMATION: Exam: CT Abdomen And Pelvis With Contrast Exam date and time: 08/26/2019 9:04 PM Age: 33 years old Clinical indication: Abdominal pain; Localized; Right upper quadrant (ruq); Chest wall pain; Patient HX: C/O R sided chest/abd pain after possible seizure; Additional info: Trauma TECHNIQUE: Imaging protocol: Computed tomography of the abdomen and pelvis with intravenous contrast. Radiation optimization: All CT scans at this facility use at least one of these dose optimization techniques: automated exposure control; mA and/or kV adjustment per patient size (includes targeted exams where dose is matched to clinical indication); or iterative reconstruction. Contrast material: OMNI 300; Contrast volume: 95 ml; Contrast route: 20G; COMPARISON: CT abdomen pelvis w con* [id number] 08/18/2019 4:55 AM RADIATION DOSE METRICS: Total DLP: 1336.75 mGy-cm FINDINGS: Liver: Unremarkable. No mass. Gallbladder and bile ducts: Normal. No calcified stones. No ductal dilation. Pancreas: Normal. No ductal dilation. Spleen: Normal. No splenomegaly. Adrenals: Normal. No mass. Kidneys and ureters: Normal. No hydronephrosis. Stomach and bowel: Unremarkable. No obstruction. No mucosal thickening. Appendix: No evidence of appendicitis. Intraperitoneal space: Unremarkable. No free air. No significant fluid collection. Vasculature: Unremarkable. No abdominal aortic aneurysm. Lymph nodes: Unremarkable. No enlarged lymph nodes. Bladder: Unremarkable as visualized. Reproductive: Unremarkable as visualized. Bones/joints: Unremarkable. No acute fracture. Soft tissues: Unremarkable. CT/CT chest abd pel w con* IMPRESSION: No acute findings. Radiation Dose CTDIVOL = (mGy): DLP = 1336.75~1336.75 (mGy-cm)
[2019-08-26] MEDS: iohexol 300 mg/mL 100 mL Btl IV (21:23)
[2019-08-26] MEDS: levETIRAcetam 500 mg Tablet PO (22:02)
[2019-08-26 22:04] VITALS: BP 107/68; PULSE 68; RESP 18; O2SAT 98
[2019-08-26 22:46] VITALS: BP 110/78; PULSE 87; RESP 18; O2SAT 98
--- NOTE | 2019-08-29 15:48 | DCPLANNER ---
international operations manager had message to schedule a follow up appointment for patient with Dr. Mcneal. international operations manager called the office of Dr. Mcneal, spoke with Stephanie, gave clinic patients information. A follow up appointment is scheduled for , August 31, 2019 at 3:[address] Mcneal. Clinic will call patient with the appointment information.
--- NOTE | 2019-09-14 12:40 | DCPLANNER ---
Patient attended appointment scheduled for 08.31.[address] Mcneal.
== END 2019-08-26 22:47 | disposition home or self-care (01) ==
PROVIDERS: Emergency Provider Emergency Medicine
DX: G40.909 Epilepsy, unspecified, not intractable, without status epilepticus (principal); R74.8 Abnormal levels of other serum enzymes; S22.31XA Fracture of one rib, right side, initial encounter for closed fracture; X58.XXXA Exposure to other specified factors, initial encounter; F17.210 Nicotine dependence, cigarettes, uncomplicated
CPT/HCPCS: 12345; 70450; 71045; 71260; 74177; 80053; 83735; 85025; 96365; 96366; 96375; 99283; 99284; A9270; J2270; J2405; Q9967

== ENCOUNTER → 2019-08-31 14:39 | Outpatient (BNVA) | payer SELFPAY | PROVIDERS: PCP Nurse Practitioner Family; Referring Provider Nurse Practitioner Family; Visit Provider Specialist | DX: G40.309 Generalized idiopathic epilepsy and epileptic syndromes, not intractable, without status epilepticus (principal); F43.12 Post-traumatic stress disorder, chronic; F17.210 Nicotine dependence, cigarettes, uncomplicated | CPT/HCPCS: 99204 ==

== ENCOUNTER → 2019-09-21 07:32 | Outpatient (BNVA) | payer SELFPAY | PROVIDERS: PCP Nurse Practitioner Family; Visit Provider Specialist | DX: G40.309 Generalized idiopathic epilepsy and epileptic syndromes, not intractable, without status epilepticus (principal) | CPT/HCPCS: 95816 ==

== ENCOUNTER → 2019-12-18 10:46 | Outpatient (BNVA) | payer SELFPAY | PROVIDERS: PCP Nurse Practitioner Family; Visit Provider Specialist | DX: G40.309 Generalized idiopathic epilepsy and epileptic syndromes, not intractable, without status epilepticus (principal); F17.210 Nicotine dependence, cigarettes, uncomplicated | CPT/HCPCS: 99214 ==

== ENCOUNTER → 2020-04-15 10:14 | Outpatient (BNVA) | payer MEDICARE, SELFPAY | PROVIDERS: PCP Nurse Practitioner Family; Visit Provider Specialist | DX: G40.309 Generalized idiopathic epilepsy and epileptic syndromes, not intractable, without status epilepticus (principal); F17.210 Nicotine dependence, cigarettes, uncomplicated | CPT/HCPCS: 99213 ==

== ENCOUNTER → 2020-10-08 13:17 | Outpatient (BNVA) | payer MEDICARE, SELFPAY | PROVIDERS: PCP Nurse Practitioner Family; Visit Provider Specialist | DX: G40.309 Generalized idiopathic epilepsy and epileptic syndromes, not intractable, without status epilepticus (principal); Z71.89 Other specified counseling; F17.210 Nicotine dependence, cigarettes, uncomplicated | CPT/HCPCS: 99214 ==

== ENCOUNTER → 2020-10-22 09:19 | Outpatient (BNVA) | payer MEDICARE, SELFPAY | PROVIDERS: PCP Nurse Practitioner Family; Visit Provider Specialist | DX: G40.309 Generalized idiopathic epilepsy and epileptic syndromes, not intractable, without status epilepticus (principal); F17.210 Nicotine dependence, cigarettes, uncomplicated | CPT/HCPCS: 95816 ==

== ENCOUNTER → 2020-12-30 15:43 | Outpatient (BNVA) | payer MEDICARE, SELFPAY | PROVIDERS: PCP Nurse Practitioner Family; Visit Provider Specialist | DX: G40.309 Generalized idiopathic epilepsy and epileptic syndromes, not intractable, without status epilepticus (principal); R51.9 Headache, unspecified; R20.0 Anesthesia of skin; R20.2 Paresthesia of skin; F17.210 Nicotine dependence, cigarettes, uncomplicated | CPT/HCPCS: 99214 ==

== ENCOUNTER → 2021-02-13 08:34 | Outpatient (BNVA) | payer MEDICARE, SELFPAY | PROVIDERS: PCP Nurse Practitioner Family; Referring Provider Specialist; Visit Provider Specialist | DX: G40.309 Generalized idiopathic epilepsy and epileptic syndromes, not intractable, without status epilepticus (principal); F17.210 Nicotine dependence, cigarettes, uncomplicated | CPT/HCPCS: 95816 ==

== ENCOUNTER → 2021-03-11 14:41 | Outpatient (BNVA) | payer MEDICARE, SELFPAY | PROVIDERS: PCP Nurse Practitioner Family; Visit Provider Specialist | DX: F44.5 Conversion disorder with seizures or convulsions (principal) | CPT/HCPCS: 99214 ==

== ENCOUNTER → 2021-09-09 09:30 | Outpatient (BNVA) | payer MEDICARE, SELFPAY | PROVIDERS: PCP Nurse Practitioner Family; Visit Provider Specialist | DX: F44.5 Conversion disorder with seizures or convulsions (principal); G43.909 Migraine, unspecified, not intractable, without status migrainosus | CPT/HCPCS: 99214 ==

== ENCOUNTER → 2022-02-10 08:18 | Outpatient (BNVA) | payer MEDICARE, SELFPAY | PROVIDERS: PCP Nurse Practitioner Family; Visit Provider Specialist | DX: G40.309 Generalized idiopathic epilepsy and epileptic syndromes, not intractable, without status epilepticus (principal) | CPT/HCPCS: 95812 ==

== ENCOUNTER → 2022-03-02 15:25 | Outpatient (BNVA) | payer MEDICARE, SELFPAY | PROVIDERS: PCP Nurse Practitioner Family; Visit Provider Specialist | DX: G40.309 Generalized idiopathic epilepsy and epileptic syndromes, not intractable, without status epilepticus (principal); G43.711 Chronic migraine without aura, intractable, with status migrainosus | CPT/HCPCS: 99214 ==

== ENCOUNTER 2022-06-09 21:04 | Emergency (ER) | payer MEDICARE, SELFPAY ==
[2022-06-09 21:06] VITALS: BMI 25.8
[2022-06-09 21:10] VITALS: BP 124/73; PULSE 83; RESP 18; TEMP 36.8; O2SAT 99
--- NOTE | 2022-06-09 21:10 | ECG_ITS ---
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
--- NOTE | 2022-06-09 21:10 | XRR_ITS ---
PROCEDURE INFORMATION: Exam: XR Chest Exam date and time: 06/09/2022 9:18 PM Age: 36 years old Clinical indication: Patient HX: Arrival via EMS for seizure activity TECHNIQUE: Imaging protocol: Radiologic exam of the chest. Views: 1 view. COMPARISON: CT chest abdpel w/*[id number] 08/26/2019 9:12 PM FINDINGS: Lungs: Unremarkable. No consolidation. Pleural spaces: Unremarkable. No pleural effusion. No pneumothorax. Heart/Mediastinum: Unremarkable. No cardiomegaly. Bones/joints: Unremarkable. XR/XR chest 1V portable [id number] IMPRESSION: No acute findings.
--- NOTE | 2022-06-09 21:12 | PC.NURSE ---
allergy band placed on patient at this time
--- NOTE | 2022-06-09 21:14 | W.ED.SEIZURE ---
HPI - Seizure General: Chief Complaint: Seizure Stated Complaint: seizure Time Seen by Provider: 06/09/22 21:07 History of Present Illness: HPI Narrative: Patient presents to the ER by EMS for evaluation of seizures. Patient had 1 witnessed seizure by the police department while he was in their custody in the back of their car. Patient states that the lights were flashing and cause a seizure. Patient does have a history of seizures. He states he takes his Topamax religiously. He says even on the Topamax he averages 1 seizure per day complaint: seizure Onset (ago): minute(s) Witnessed: Yes - by Other (By police) Trauma: No Seizure History: Yes Place: When please custody Possible Precipitating Event: other (The flashing lights of the please call) Associated symptoms: Reports no associated symptoms; Deny chest pain, chills or fever(s) Treatments prior to arrival: none Review of Systems General: Reports: 10 or more systems reviewed and unremarkable except in HPI and below Const: Denies: fever(s), chills or body aches Eyes: Denies: change in vision ENMT: Denies: throat pain or odynophagia Card: Denies: chest pain, palpitations or irregular heart rhythm Resp: Denies: dyspnea, productive cough, non-productive cough or wheezing GI: Denies: abdominal pain, nausea, vomiting or diarrhea : Denies: flank pain, difficulty urinating or dysuria Musc: Denies: neck pain, back pain or extremity pain Skin/Breast: Denies: rash, pruritus or erythema Neuro: Reports: seizure-like activity; Denies: headache(s), numbness in extremities or weakness in extremities Psych: Denies: anxiety, depression or mood swings Endo: Denies: polyuria, polydipsia or tired all the time Mark/Lymph: Denies: easy bruising, easy bleeding or petechiae All/Imm: Denies: urticaria, throat swelling or tongue swelling PFS ED PFSH: Medical History (Updated 06/09/22 @ 22:42 by Shreyas Nicole DO) Alcohol dependence, uncomplicated Cannabis dependence, uncomplicated Major depressive disorder, recurrent severe without psychotic features Nicotine dependence, cigarettes, uncomplicated Other stimulant dependence, uncomplicated Post-traumatic stress disorder, chronic Family History Other CAD (coronary artery disease) Cancer Diabetes Hypertension Stroke Social History Smoking and tobacco status: current every day smoker cigarettes Packs smoked per day: 1.0 Alcohol intake: former Physical Exam Const: COMMON NORMALS: no acute distress, average body habitus, patient oriented x3, no limitations, healthy appearing, alert and well nourished OTHER: Patient's cognition appears slow as he is slow to respond with answers but he responds appropriately. HENMT: COMMON NORMALS: normocephalic, atraumatic, hearing grossly normal bilaterally and moist oral mucous membranes HEAD & SCALP: normocephalic and atraumatic Eye: COMMON NORMALS: EOMs intact bilaterally and conjunctivae normal CONJUNCTIVA: Yes conjunctivae normal Neck/C-Spine: COMMON NORMALS: full ROM, no lymphadenopathy, supple, no JVD and Thyroid normal THYROID: Thyroid normal Chest: COMMONS NORMALS: normal inspection of the chest and normal palpation of entire chest wall Resp: COMMON NORMALS: normal respiratory effort, No retractions, No use of accessory muscles and clear to auscultation bilaterally AUSCULTATION: clear to auscultation bilaterally Cardio: COMMON NORMALS: no JVD, regular rate, regular rhythm, S1 normal heart sound present, S2 normal heart sound present and No gallops present (Cardio) RATE: regular rate RHYTHM: regular rhythm HEART SOUNDS: S1 normal heart sound present and S2 normal heart sound present GI: COMMON NORMALS: Normal to inspection, nondistended, normoactive bowel sounds present, Soft to palpation, non-tender, No hepatosplenomegaly present and no masses PALPATION: Yes Soft to palpation and Yes No hepatosplenomegaly present Neuro: COMMON NORMALS: patient oriented x3, CN's II-XII intact bilaterally, moves all extremities, no focal motor deficits and no sensory deficits noted SENSORIUM/ORIENTATION: Yes alert Psych: COMMON NORMALS: mental status grossly normal, Normal thought process present, cooperative, normal affect and speech normal SPEECH: Yes normal speech THOUGHT PROCESS: Normal thought process present Course Vital Signs: Vital signs: Vital Signs Temperature 98.3 F 06/09/22 21:10 Pulse Rate 83 06/09/22 21:10 Respiratory Rate 18 06/09/22 21:10 Blood Pressure 124/73 06/09/22 21:10 Pulse Oximetry 99 06/09/22 21:10 Oxygen Delivery Me thod 06/09/22 21:10 MDM - Seizure MDM Narrative Medical decision making narrative: Presents to the ER with complaints of seizure. Patient does have a history of seizures. Patient states he has 1 seizure a day even though he takes his medicine religiously. Patient says the seizure was started with the flashing lights of the police car that pulled him over. He says this was his normal seizure nothing out of the ordinary. Upon history and physical exam, as well as reviewing the labs which were essentially benign except for his amphetamine in his urine drug screen. I feel this may have been a way for him to not go to skilled nursing when the police pulled him over for it was his common seizure that was brought on by the flashing police lights. After discussing the labs with the patient patient is requesting to go home. Patient feels comfortable with this decision. Patient will be discharged home and was instructed to stay away from flashing lights and to follow-up with his primary care physician for further treatment. Differential Diagnosis Seizure Differential Diagnosis: Likely generalized seizure and epileptic seizure; Unlikely intractable seizure disorder or febrile convulsion Lab Data 06/09/22 21:18 06/09/22 21:18 Labs: Radiology Impressions Chest X-Ray 06/09/22 21:10 IMPRESSION: No acute findings. Laboratory Results WBC 8.2 10^3/uL (4.0-10.0) 06/09/22 21:18 RBC 4.74 10^6/uL (4.1-5.3) 06/09/22 21:18 Hgb 14.5 g/dL (11.7-16.6) 06/09/22 21:18 Hct 44.8 % (42.0-52.0) 06/09/22 21:18 MCV 94.5 fl (80-94) H 06/09/22 21:18 MCH 30.6 pg (28.0-34.0) 06/09/22 21:18 MCHC 32.4 g/dL (30.0-36.0) 06/09/22 21:18 RDW 12.8 % (12.1-15.1) 06/09/22 21:18 Plt Count 288 10^3/cmm (130-400) 06/09/22 21:18 MPV 9.3 fL (7.4-10.4) 06/09/22 21:18 Neut % (Auto) 61.3 % 06/09/22 21:18 Lymph % (Auto) 30.0 % 06/09/22 21:18 [place] % (Auto) 6.2 % 06/09/22 21:18 Eos % (Auto) 2.0 % 06/09/22 21:18 Baso % (Auto) 0.4 % 06/09/22 21:18 Neut # (Auto) 5.01 10^3/uL (1.8-7.7) 06/09/22 21:18 Lymph # (Auto) 2.5 10^3/uL (0.8-4.8) 06/09/22 21:18 [place] # (Auto) 0.5 10^3/uL (0.2-0.9) 06/09/22 21:18 Eos # (Auto) 0.2 10^3/uL (0.0-0.8) 06/09/22 21:18 Baso # (Auto) 0.0 10^3/uL (0.0-0.1) 06/09/22 21:18 Nucleated RBC % (auto) 0 % 06/09/22 21: Nucleated RBCs # 0.0 /100WBC 06/09/22 21:18 Sodium 145 mmol/L (136-145) 06/09/22 21:18 Potassium 4.2 mmol/L (3.5-5.1) 06/09/22 21:18 Chloride 108 mmol/L (98-107) H 06/09/22 21:18 Carbon Dioxide 25 mmol/L (22-29) 06/09/22 21:18 Anion Gap 16.2 (5-19) 06/09/22 21:18 BUN 21 mg/dL (6-20) H 06/09/22 21:18 Creatinine 1.2 mg/dL (0.7-1.2) 06/09/22 21:18 GFR Calculation 68.9 mL/min (90-130) L 06/09/22 21:18 Glucose 105 mg/dL (65-115) 06/09/22 21:18 Calculated Osmolality 303 mOsm/kg (285-295) H 06/09/22 21:18 Calcium 9.6 mg/dL (8.5-10.5) 06/09/22 21:18 Total Bilirubin 0.2 mg/dL (0.15-1.2) 06/09/22 21:18 AST 18 U/L (0-40) 06/09/22 21:18 ALT 20 U/L (0-41) 06/09/22 21:18 Alkaline Phosphatase 132 U/L (40-130) H 06/09/22 21:18 Total Protein 7.6 g/dL (6.6-8.7) 06/09/22 21:18 Albumin 4.4 g/dL (3.5-5.2) 06/09/22 21:18 Globulin 3.2 g/dL (1.3-4.6) 06/09/22 21:18 Urine Color Yellow (Yellow) 06/09/22 21:43 Urine Appearance Hazy (CLEAR) A 06/09/22 21:43 Urine pH 7 (5-7) 06/09/22 21:43 Ur Specific [place] 1.010 (1.005-1.030) 06/09/22 21:43 Urine Protein Neg (Negative) 06/09/22 21:43 Urine Glucose (UA) Norm (Normal) 06/09/22 21:43 Urine Ketones Negative (Negative) 06/09/22 21:43 Urine Blood Neg (Negative) 06/09/22 21:43 Urine Nitrate Negative (Negative) 06/09/22 21:43 Urine Bilirubin Neg (Negative) 06/09/22 21:43 Urine Urobilinogen Norm mg/dL (Negative) 06/09/22 21:43 Ur Leukocyte Esterase Negative (Negative) 06/09/22 21:43 Urine Opiates Screen Negative ng/mL (Negative) 06/09/22 21:43 Ur Barbiturates Screen Negative ng/mL (Negative) 06/09/22 21:43 Ur Phencyclidine Scrn Negative ng/mL (Negative) 06/09/22 21:43 Ur Amphetamines Screen Positive ng/mL (Negative) H 06/09/22 21:43 U Benzodiazepines Scrn Negative ng/mL (Negative) 06/09/22 21:43 Urine Cocaine Screen Negative ng/mL (Negative) 06/09/22 21:43 U Marijuana (THC) Screen Negative ng/mL (Negative) 06/09/22 21:43 Ethyl Alcohol < 10 mg/dL (0-10) 06/09/22 21:18 EKG Data EKG 1: Attestation: I personally reviewed and interpreted this EKG as follows: EKG interpretation date: 06/09/22 EKG interpretation time: 21:39 Prior EKG tracings: not available for review Interpretation: EKG shows normal sinus rhythm with a ventricular rate 79 bpm borderline right axis deviation, [place] interval 145, QRS duration of 91, QTc of 372, no ST-T wave changes Discharge Plan Discharge Patient Disposition: Home Clinical Impression: Generalized epilepsy, Other stimulant dependence, uncomplicated Condition: Stable Prescriptions: No Action clonazepam 0.5 mg tablet 0.5 mg PO BID PRN topiramate [Topamax] 100 mg tablet 150 mg PO BID Qty: 270 1RF amitriptyline 25 mg tablet 25 mg PO ONCE 90 Days Qty: 90 3RF Emgality Pen 120 mg/mL pen injector 120 mg SUBCUT ONCE Qty: 1 4RF Emgality Pen 120 mg/mL pen injector 240 mg SUBCUT ONCE Qty: 2 0RF Rx Instructions: Loading dose for 1st month Discharge Orders: Discharge ED (Routine); Ordered 06/09/22 Ordered By: Shreyas Nicole Referrals: Liz Clemons FNP [Primary Care Provider] - 1 week Patient Instructions: Epilepsy (ED), Methamphetamine Use Disorder (ED) Coding Level of Care Code ED [employer] 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
[2022-06-09 21:25] LABS: Basophils % 0.4 %; Eosinophils # 0.2 10^3/uL (0.0-0.8); Hematocrit 44.8 % (42.0-52.0); Hemoglobin 14.5 g/dL (11.7-16.6); Lymphocytes # 2.5 10^3/uL (0.8-4.8); Mean Corpuscular HGB Conc 32.4 g/dL (30.0-36.0); Mean Corpuscular Hemoglobin 30.6 pg (28.0-34.0); Mean Corpuscular Volume 94.5 fl (80-94); Mean Platelet Volume 9.3 fL (7.4-10.4); Monocytes # 0.5 10^3/uL (0.2-0.9); Monocytes % 6.2 %; Neutrophils # 5.01 10^3/uL (1.8-7.7); Neutrophils % 61.3 %; Nucleated Red Blood Cells % 0 %; Platelet Count 288 10^3/cmm (130-400); Red Blood Count 4.74 10^6/uL (4.1-5.3); Red Cell Distribution Width 12.8 % (12.1-15.1); White Blood Count 8.2 10^3/uL (4.0-10.0)
[2022-06-09 21:44] LABS: Albumin Level 4.4 g/dL (3.5-5.2); Alkaline Phosphatase 132 U/L (40-130); Anion Gap 16.2 (5-19); Aspartate Amino Transferase 18 U/L (0-40); Blood Urea Nitrogen 21 mg/dL (6-20); Calcium 9.6 mg/dL (8.5-10.5); Carbon Dioxide 25 mmol/L (22-29); Chloride 108 mmol/L (98-107); Creatinine Clr Calc Pharmacy 87.3595; Globulin 3.2 g/dL (1.3-4.6); Glomerular Filtration Rate 68.9 mL/min (90-130); Glucose 105 mg/dL (65-115); Osmolality Calculated 303 mOsm/kg (285-295); Potassium 4.2 mmol/L (3.5-5.1); Sodium 145 mmol/L (136-145); Total Bilirubin 0.2 mg/dL (0.15-1.2); Total Protein 7.6 g/dL (6.6-8.7)
[2022-06-09 21:49] LABS: Add Urine Microscopic? NO; Charge for UA Resulting for Rev
[2022-06-09 21:54] LABS: Alcohol Level < 10 mg/dL (0-10)
[2022-06-09 21:55] LABS: Alanine Aminotransferase 20 U/L (0-41)
[2022-06-09 22:08] LABS: Urine Appearance Hazy (CLEAR); Urine Color Yellow (Yellow); pH Urine 7 (5-7)
[2022-06-09 22:09] LABS: Bilirubin Urine Neg (Negative); Blood Urine Neg (Negative); Glucose Urine UA Norm (Normal); Ketones Urine Negative (Negative); Leukocyte Esterase Urine Negative (Negative); Nitrate Urine Negative (Negative); Protein Urine Neg (Negative); Urobilinogen Urine Norm (Negative)
[2022-06-09 22:14] LABS: Amphetamines Screen Urine Positive (Negative); Barbiturates Screen Urine Negative (Negative); Benzodiazepines Screen Urine Negative (Negative); Cocaine Screen Urine Negative (Negative); Opiate Screen Urine Negative (Negative); PCP Screen Urine Negative (Negative); THC Screen Urine Negative (Negative)
--- NOTE | 2022-06-09 22:43 | PC.NURSE ---
family member to nurses station stating they need to leave due to family emergency. made aware. states he will dc. pt refusing to wait for paperwork.
[2022-06-09 23:14] LABS: Prolactin 4.85 ng/mL (4.0-15.2)
== END 2022-06-09 22:49 | disposition home or self-care (01) ==
PROVIDERS: Emergency Provider Emergency Medicine; PCP Nurse Practitioner Family
DX: G40.409 Other generalized epilepsy and epileptic syndromes, not intractable, without status epilepticus (principal); F17.210 Nicotine dependence, cigarettes, uncomplicated
CPT/HCPCS: 71045; 80053; 80306; 80307; 81003; 84146; 85025; 93005; 99285

== ENCOUNTER → 2022-07-29 14:28 | Outpatient (BNVA) | payer MEDICARE, SELFPAY | PROVIDERS: Visit Provider Specialist | DX: F44.5 Conversion disorder with seizures or convulsions (principal); G43.711 Chronic migraine without aura, intractable, with status migrainosus; F15.20 Other stimulant dependence, uncomplicated; F17.210 Nicotine dependence, cigarettes, uncomplicated | CPT/HCPCS: 99214 ==

== ENCOUNTER → 2022-10-26 14:10 | Outpatient (BNVA) | payer MEDICARE, SELFPAY | PROVIDERS: Referring Provider Specialist; Visit Provider Specialist | DX: G43.711 Chronic migraine without aura, intractable, with status migrainosus (principal); F44.5 Conversion disorder with seizures or convulsions | CPT/HCPCS: 99213 ==

== ENCOUNTER 2022-12-22 06:18 | Outpatient (CLI) | payer MEDICARE, SELFPAY ==
--- NOTE | 2022-12-22 06:30 | USCV_ITS ---
Andre Pressley Age: 37 Gender: M : 1985 Exam Date: 12/22/2022 06:41 Ordering Phys: Haleigh Larry MD Technologist: [place] [facility] [place]: lt arm pain and edema PROCEDURES: Venous duplex imaging was performed in only the left upper extremity. The following venous structures were evaluated: internal jugular vein, subclavian vein, axillary vein, and brachial veins. In addition, the basilic vein, cephalic vein, radial vein, and ulnar vein. FINDINGS: The veins of the left upper extremity are readily compressible with normal venous flow dynamics including spontaneous flow, respiratory phasic variation and augmentation. CONCLUSIONS No left upper extremity DVT. Dr. Anusha Lemons DO (Electronically Signed) Final Date: 22 December 2022 07:41 S
== END 2022-12-22 06:19 | disposition home or self-care (01) ==
PROVIDERS: PCP Nurse Practitioner Family; Visit Provider Neurological Surgery
DX: M79.602 Pain in left arm (principal); R60.0 Localized edema
CPT/HCPCS: 93971

== ENCOUNTER 2023-11-09 19:30 | Emergency (ER) | payer MEDICARE, SELFPAY ==
--- NOTE | 2023-11-09 19:31 | USR_ITS ---
PROCEDURE INFORMATION: Exam: US Scrotum Exam date and time: 11/09/2023 7:49 PM Age: 38 years old Clinical indication: Scrotum pain; Patient HX: Right scrotal increasing pain x 2 weeks. No history of recent trauma. No history of vasectomy. ; Additional info: Testicle pain TECHNIQUE: Imaging protocol: Real-time ultrasound of the scrotum and contents with color Doppler and image documentation. COMPARISON: US scrotum [id number] 02/12/2017 1:38 PM FINDINGS: Right testicle: The right testicle measures 4.2 x 2.2 x 3.0 cm. There is increased vascular flow to the right testicle. Left testicle: The left testicle measures 4.2 x 2.1 x 3.0 cm. There is vascular flow to the left testicle. Epididymides: The right epididymis measures 5.9 x 1.4 x 2.6 cm. The left epididymis measures 6.0 x 1.1 x 1.3 cm. Extratesticular spaces: No significant hydroceles. Scrotum/soft tissues: Normal. US/US scrotum [id number] IMPRESSION: Right-sided epididymo-orchitis.
[2023-11-09 19:40] VITALS: BP 104/70; PULSE 74; RESP 16; TEMP 36.4; O2SAT 100; BMI 27.3
--- NOTE | 2023-11-09 20:19 | W.ED.MALEGU ---
HPI - Male Genitourinary General: Chief complaint: Urogenital-Male Stated complaint: lump scrotum n/v pain Time Seen by Provider: 11/09/23 19:50 Source: patient Mode of arrival: ambulatory Limitations: no limitations History of Present Illness: 38-year-old male states that he noticed a lump to his right testicle 1 to 2 months ago he states over the last 3 to 4 days has had increasing swelling and pain at that area. States pain sharp in nature rates today 5 out of 10. He denies any dysuria has had some slight nausea denies any fever Associated symptoms: Deny nausea or vomiting Related Data Home Medications Medication Instructions Recorded Confirmed clonazepam 0.5 mg tablet 0.5 mg PO BID PRN 09/09/21 10/26/22 Previous Rx's Medication Instructions Recorded galcanezumab-gnlm 120 mg/mL 240 mg (2 mL) SUBCUT ONCE #2 mL 06/08/22 subcutaneous pen injector (Emgality Pen) galcanezumab-gnlm 120 mg/mL 120 mg SUBCUT ONCE #1 mL 06/17/22 subcutaneous pen injector (Emgality Pen) divalproex 500 mg tablet,delayed See Rx Instructions .Route 08/13/22 release .COMPLEX #180 tabs amitriptyline 25 mg tablet See Rx Instructions .Route 02/26/23 .COMPLEX #90 tabs topiramate 100 mg tablet See Rx Instructions .Route 07/30/23 .COMPLEX #270 tabs doxycycline hyclate 100 mg tablet 100 mg PO BID 14 days #28 tabs 11/09/23 hydrocodone 5 mg-acetaminophen 325 1 tab PO Q6H PRN pain #14 tabs 11/09/23 mg tablet ondansetron 4 mg disintegrating 4 mg PO Q6H PRN nausea and 11/09/23 tablet vomiting #14 tabs Allergies Allergy/AdvReac Type Severity Reaction Status Date / Time naproxen Allergy Unknown hives Verified 12/09/22 14:20 Review of Systems Const: Denies: fever(s), chills, body aches or change in appetite Eyes: Denies: eye discomfort ENMT: Denies: throat pain or dental pain Card: Denies: chest pain Resp: Denies: dyspnea GI: Denies: abdominal pain, nausea, vomiting or diarrhea : Reports: testicular pain and testicular mass Musc: Denies: neck pain or back pain Skin/Breast: Denies: rash Neuro: Denies: headache(s) PFSH ED PFSH: Medical History Psychiatric care Nicotine dependence, cigarettes, uncomplicated Alcohol dependence, uncomplicated Other stimulant dependence, uncomplicated Cannabis dependence, uncomplicated Major depressive disorder, recurrent severe without psychotic features Post-traumatic stress disorder, chronic Family History Other CAD (coronary artery disease) Cancer Diabetes Hypertension Stroke Social History Smoking and tobacco/nicotine status: current every day tobacco/nicotine user cigarettes Packs smoked per day: 1.0 Alcohol intake: former Substance/Drug Use: former Date of last use: 06/2019 Physical Exam Const: COMMON NORMALS: no acute distress, patient oriented x3 and healthy appearing HENMT: COMMON NORMALS: normocephalic and atraumatic HEAD & SCALP: normocephalic and atraumatic Eye: COMMON NORMALS: conjunctivae normal CONJUNCTIVA: Yes conjunctivae normal Neck/C-Spine: COMMON NORMALS: full ROM and supple Chest: COMMONS NORMALS: normal inspection of the chest Resp: COMMON NORMALS: normal respiratory effort GI: COMMON NORMALS: Normal to inspection, nondistended, normoactive bowel sounds present, Soft to palpation, non-tender and no masses PALPATION: Yes Soft to palpation : OTHER: Tenderness to right testicle lump palpated Extremity: COMMON NORMALS: normal to inspection and full ROM Neuro: COMMON NORMALS: patient oriented x3, moves all extremities and no focal motor deficits Psych: COMMON NORMALS: mental status grossly normal, Normal thought process present and cooperative THOUGHT PROCESS: Normal thought process present Skin: COMMON NORMALS: no rashes or lesions noted and no wounds GENERAL SKIN EXAM: no rashes or lesions noted Course Vital Signs: Vital signs: Vital Signs Temperature 97.6 F 11/09/23 19:40 Pulse Rate 69 11/09/23 20:31 Respiratory Rate 16 11/09/23 20:31 Blood Pressure 104/55 11/09/23 20:31 Pulse Oximetry 99 11/09/23 20:31 Oxygen Delivery Me thod Room Air 11/09/23 20:31 MDM - Male Medical Decision Making Patient presents here with testicle pain ultrasound does show a likely epididymitis we will place him on antibiotics and pain medicine we will get him urology follow-up he is return if worsening he understands agrees to plan. Medical Records I reviewed the patient's medical records. Lab Data I reviewed the patient's lab results. 11/09/23 20:28 11/09/23 20:28 Radiology Impressions Scrotum Ultrasound 11/09/23 19:31 IMPRESSION: Right-sided epididymo-orchitis. Laboratory Results WBC 8.54 10^3/uL (3.29-11.43) 11/09/23 20: RBC 4.60 10^6/uL (3.85-5.65) 11/09/23 20: Hgb 14.40 g/dL (11.27-16.99) 11/09/23 20: Hct 43.4 % (37-53) 11/09/23 20: MCV 94.3 fl (82-101) 11/09/23 20: MCH 31.3 pg (27-33) 11/09/23 20: MCHC 33.2 g/dL (30-55) 11/09/23 20: RDW 12.7 % (12.1-15.1) 11/09/23: Plt Count 219 10^3/cmm (157-399) 11/09/23 20: MPV 9.6 fL (7.4-10.4) 11/09/23 20: Neut % (Auto) 46.7 % 11/09/23 20: Lymph % (Auto) 41.5 % 11/09/23 20: [place] % (Auto) 7.8 % 11/09/23 20: Eos % (Auto) 3.3 % 11/09/23 20: Baso % (Auto) 0.6 % 11/09/23: Neut # (Auto) 3.99 10^3/uL (1.8-7.7) 11/09/23 20: Lymph # (Auto) 3.5 10^3/uL (0.8-4.8) 11/09/23 20: [place] # (Auto) 0.7 10^3/uL (0.2-0.9) 11/09/23 20:28 Eos # (Auto) 0.3 10^3/uL (0.0-0.8) 11/09/23 20:28 Baso # (Auto) 0.1 10^3/uL (0.0-0.1) 11/09/23 20:28 Nucleated RBC % (auto) 0 % 11/09/23 20: Nucleated RBCs # 0.0 /100WBC 11/09/23 20:28 Sodium 139 mmol/L (136-145) 11/09/23 20:28 Potassium 4.1 mmol/L (3.5-5.1) 11/09/23 20: Chloride 106 mmol/L (98-107) 11/09/23 20: Carbon Dioxide 23 mmol/L (22-29) 11/09/23 20: Anion Gap 14.1 (5-19) 11/09/23 20:28 BUN 18 mg/dL (6-20) 11/09/23 20: Creatinine 1.3 mg/dL (0.7-1.2) H 11/09/23 20:28 GFR Calculation 62.1 mL/min (90-130) L 11/09/23 20: Glucose 100 mg/dL (65-115) 11/09/23 20: Calculated Osmolality 290 mOsm/kg (285-295) 11/09/23 20: Calcium 9.2 mg/dL (8.5-10.5) 11/09/23 20:28 Total Bilirubin 0.2 mg/dL (0.15-1.2) 11/09/23 20:28 AST 13 U/L (0-40) 11/09/23 20:28 ALT 24 U/L (0-41) 11/09/23 20:28 Alkaline Phosphatase 113 U/L (40-130) 11/09/23 20:28 Total Protein 7.1 g/dL (6.6-8.7) 11/09/23 20:28 Albumin 4.3 g/dL (3.5-5.2) 11/09/23 20:28 Globulin 2.8 g/dL (1.3-4.6) 11/09/23 20:28 Urine Color Yellow (Yellow) 11/09/23 20:40 Urine Appearance Clear (CLEAR) 11/09/23 20:40 Urine pH 6.5 (5-7) 11/09/23 20:40 Ur Specific [place] 1.021 (1.005-1.030) 11/09/23 20:40 Urine Protein Negative (Negative) 11/09/23 20:40 Urine Glucose (UA) Negative (Normal) 11/09/23 20:40 Urine Ketones Negative (Negative) 11/09/23 20:40 Urine Blood Negative (Negative) 11/09/23 20:40 Urine Nitrate Negative (Negative) 11/09/23 20:40 Urine Bilirubin Negative (Negative) 11/09/23 20:40 Urine Urobilinogen 1.0 mg/dL (Negative) 11/09/23 20:40 Ur Leukocyte Esterase Negative (Negative) 11/09/23 20:40 Urine RBC 0-2 /hpf (0-2) 11/09/23 20:40 Urine WBC 0-5 /hpf (0-5) 11/09/23 20:40 Ur Squamous Epith Cells 0-5 /hpf (0-5) 11/09/23 20:40 Amorphous Sediment Not Reportable 11/09/23 20:40 Urine Bacteria None seen /hpf (NONE) 11/09/23 20:40 Hyaline Casts 0-4 /lpf H 11/09/23 20:40 All radiology interpretation(s) finalized by discharge Discharge Plan Discharge Patient Disposition: Home Clinical Impression: Epididymitis Condition: Stable Prescriptions: New hydrocodone-acetaminophen 5-325 mg tablet 1 tab PO Q6H PRN (Reason: pain) Qty: 14 0RF ondansetron 4 mg tablet,disintegrating 4 mg PO Q6H PRN (Reason: nausea and vomiting) Qty: 14 0RF doxycycline hyclate 100 mg tablet 100 mg PO BID 14 Days Qty: 28 0RF No Action clonazepam 0.5 mg tablet 0.5 mg PO BID PRN Emgality Pen 120 mg/mL pen injector 240 mg SUBCUT ONCE Qty: 2 0RF Rx Instructions: Loading dose for 1st month Emgality Pen 120 mg/mL pen injector 120 mg SUBCUT ONCE Qty: 1 2RF divalproex 500 mg tablet,delayed release (DR/EC) See Rx Instructions .ROUTE .COMPLEX Qty: 180 0RF Dose Instruction: TAKE 1 TABLET BY MOUTH TWICE DAILY Rx Instructions: TAKE 1 TABLET BY MOUTH TWICE DAILY amitriptyline 25 mg tablet See Rx Instructions .ROUTE .COMPLEX Qty: 90 3RF Dose Instruction: TAKE 1 TABLET EVERY DAY Rx Instructions: TAKE 1 TABLET EVERY DAY topiramate 100 mg tablet See Rx Instructions .ROUTE .COMPLEX Qty: 270 0RF Dose Instruction: TAKE 1 AND 1/2 TABLETS BY MOUTH TWICE DAILY Rx Instructions: TAKE 1 AND 1/2 TABLETS BY MOUTH TWICE DAILY Discharge Orders: Discharge ED (Routine); Ordered 11/09/23 Ordered By: Quyen Saba Referrals: Hua Larry APRN [Primary Care Provider] - Discharge Diet: Advance as tolerated Discharge Activity: Resume usual activity Patient Instructions: Epididymitis (ED), Opioid Safety Coding Level of Care Code ED Clerical Associate for Tom Lopez
[2023-11-09] MEDS: HYDROcodone-acetaminophen 5-325 mg Tablet 1 TAB PO (20:26)
[2023-11-09 20:31] VITALS: BP 104/55; PULSE 69; RESP 16; O2SAT 99
[2023-11-09 20:39] LABS: Basophils # 0.1 10^3/uL (0.0-0.1); Basophils % 0.6 %; Eosinophils # 0.3 10^3/uL (0.0-0.8); Eosinophils % 3.3 %; Hematocrit 43.4 % (37-53); Lymphocytes # 3.5 10^3/uL (0.8-4.8); Lymphocytes % 41.5 %; Mean Corpuscular HGB Conc 33.2 g/dL (30-55); Mean Corpuscular Hemoglobin 31.3 pg (27-33); Mean Corpuscular Volume 94.3 fl (82-101); Mean Platelet Volume 9.6 fL (7.4-10.4); Monocytes # 0.7 10^3/uL (0.2-0.9); Monocytes % 7.8 %; Neutrophils # 3.99 10^3/uL (1.8-7.7); Neutrophils % 46.7 %; Nucleated Red Blood Cells % 0 %; Platelet Count 219 10^3/cmm (157-399); Red Cell Distribution Width 12.7 % (12.1-15.1); White Blood Count 8.54 10^3/uL (3.29-11.43)
[2023-11-09 20:51] LABS: Alanine Aminotransferase 24 U/L (0-41); Albumin Level 4.3 g/dL (3.5-5.2); Alkaline Phosphatase 113 U/L (40-130); Anion Gap 14.1 (5-19); Aspartate Amino Transferase 13 U/L (0-40); Blood Urea Nitrogen 18 mg/dL (6-20); Calcium 9.2 mg/dL (8.5-10.5); Carbon Dioxide 23 mmol/L (22-29); Chloride 106 mmol/L (98-107); Creatinine Clr Calc Pharmacy 81.1002; Globulin 2.8 g/dL (1.3-4.6); Glomerular Filtration Rate 62.1 mL/min (90-130); Glucose 100 mg/dL (65-115); Osmolality Calculated 290 mOsm/kg (285-295); Potassium 4.1 mmol/L (3.5-5.1); Sodium 139 mmol/L (136-145); Total Bilirubin 0.2 mg/dL (0.15-1.2); Total Protein 7.1 g/dL (6.6-8.7)
[2023-11-09 21:11] LABS: Charge for UA Resulting for Rev
[2023-11-09] MEDS: doxycycline 100 mg Tablet PO (21:12)
[2023-11-09] MEDS: cefTRIAXone 250 MG in water for injection-sterile 0.9 ML IM (21:12)
[2023-11-09 21:14] LABS: Bilirubin Urine Negative (Negative); Blood Urine Negative (Negative); Glucose Urine UA Negative (Normal); Ketones Urine Negative (Negative); Leukocyte Esterase Urine Negative (Negative); Nitrate Urine Negative (Negative); Protein Urine Negative (Negative); Specific Gravity, Urine 1.021 (1.005-1.030); Urine Appearance Clear (CLEAR); Urine Color Yellow (Yellow); pH Urine 6.5 (5-7)
[2023-11-09 21:19] LABS: Bacteria Urine None Seen /hpf; Hyaline Casts Urine 0-4 /lpf; RBC Urine 0-2 /hpf (0-2); Squamous Epithelial Cell Urine 0-5 /hpf (0-5); WBC Urine 0-5 /hpf (0-5)
[2023-11-09 21:30] VITALS: BP 100/61; PULSE 64; RESP 16; O2SAT 94
--- NOTE | 2023-11-11 07:38 | DCPLANNER ---
faxed [facility] referral for er f/u
== END 2023-11-09 21:33 | disposition home or self-care (01) ==
PROVIDERS: Emergency Provider Emergency Medicine; PCP Nurse Practitioner Family
DX: N45.1 Epididymitis (principal); F17.210 Nicotine dependence, cigarettes, uncomplicated
CPT/HCPCS: 36415; 76870; 80053; 81003; 81015; 85025; 96372; 99284; J0696

== ENCOUNTER → 2024-10-06 10:15 | Outpatient (BNVA) | payer MEDICARE, SELFPAY ==
[2024-07-25 10:14] VITALS: BP 116/74; BMI 27.7
== END ==
PROVIDERS: PCP Nurse Practitioner Family; Visit Provider Nurse Practitioner Psychiatric/Mental Health
DX: Z79.899 Other long term (current) drug therapy (principal)
CPT/HCPCS: 80053; 82306; 82550; 82607; 85025